=== PATIENT | male | born 1990 | race Caucasian/White ===

== ENCOUNTER 2020-10-09 08:25 | Emergency (ER) | payer SELFPAY ==
[~2020-10-09] VITALS: Ht 172.7 cm; Wt 76.0 kg
[2020-10-09 08:47] VITALS: BP 131/87
[2020-10-09] MEDS ORDERED: IBUPROFEN 400MG TABLET PO ONE (09:00)
[2020-10-09] MEDS ORDERED: IBUP-2028 MT (09:00)
== END 2020-10-09 09:09 | disposition left against medical advice (07) ==
LOC: ER 08:25
DX: M25.512 Pain in left shoulder (principal); X58.XXXA Exposure to other specified factors, initial encounter; Y93.89 Activity, other specified; Y92.89 Other specified places as the place of occurrence of the external cause; Y99.0 Civilian activity done for income or pay
CPT/HCPCS: 99281